=== PATIENT | male | born 1955 | race Caucasian/White ===

== ENCOUNTER 2022-01-18 10:11 | Outpatient (CLI) | payer OTHER, MEDICARE, SELFPAY ==
--- OUTSIDE RECORDS SUMMARY | 2022-01-18 10:14 | XMS_ITS | Clinical Summary ---
:1955 Author Organization [facility] [place] [address] Care Team Providers Name Role Phone Alexandre Asif MD Primary Care Provider Allergies No known active allergies Medications Medication Sig Dispensed Refills Start Date End Date Status lisinopril (PRINIVIL; Take 20 mg by mouth 0 Active ZESTRIL) 20 mg tablet once daily. aspirin (ECOTRIN) 81 Take 81 mg by mouth 0 Active mg enteric coated once daily in the tablet evening. nitroglycerin Place 1 tablet 25 tablet 2 10/01/2018 Active (NITROSTAT) 0.4 mg under the tongue sublingual every 5 minutes if tabletIndications: needed for Chest Coronary artery Pain (May repeat up disease, angina to 3 doses. If no presence unspecified, relief, call unspecified vessel or provider.). lesion type, unspecified whether [place] or transplanted heart carvediloL (COREG) 25 TAKE ONE TABLET BY 60 tablet 0 0 Active mg tabletIndications: MOUTH TWICE A DAY Coronary artery disease, angina presence unspecified, unspecified vessel or lesion type, unspecified whether [place] or transplanted heart, Ischemic cardiomyopathy spironolactone Take 1 Tablet by 90 Tablet 3 06/22/2020 Active (ALDACTONE) 25 mg mouth every tabletIndications: morning. Ischemic cardiomyopathy atorvastatin TAKE ONE TABLET BY 90 Tablet 3 07/14/2020 Active (LIPITOR) 40 mg MOUTH AT BEDTIME tabletIndications: Coronary artery disease, angina presence unspecified, unspecified vessel or lesion type, unspecified whether [place] or transplanted heart acetaminophen Take 2 Tablets (650 0 10/18/2021 Active (TYLENOL) 325 mg mg) by mouth every tabletIndications: 4 hours if needed Closed fracture of for Pain. Max multiple ribs of acetaminophen dose: right side, initial 4000mg in 24 hrs. encounter oxyCODONE Take 1 Tablet (5 10 Tablet 0 10/18/2021 Ac tive (ROXICODONE) 5 mg mg) by mouth every immediate release 4 hours if needed tabletIndications: for Pain. Closed fracture of multiple ribs of right side, initial encounter apixaban (ELIQUIS) 5 Take 1 Tablet (5 10 Tablet 0 10/18/2021 Active mg tabletIndications: mg) by mouth 2 left ventricular times daily. apical thrombus Active Problems Patient Care Coordination Note Formatting of this note might be differe nt from the original. Returning to work is what matters most t lj [place]. Anaya would like his care team to know has not quit smoking and going to improve his diet. What are Anaya's challenges, stressors, or barriers? Recent PPM placement, recently quit smoking Problem Noted Date Left heart thrombus 11/18/2021 Left ventricular thrombus following ID 10/17/2021 Overview: Formatting of this note is dif ferent from the original. EXAM: CT CHEST ABDOMEN PELVIS W LOCATION: [facility] DATE/TIME: 10/17/2021 11:41 AM ?? INDICATION: Polytrauma, blunt COMPARISON: 10/01/18 xr, 09/26/18 ct TECHNIQUE: CT scan of the chest, abdomen , and pelvis was performed following injection of IV contrast. Multiplanar reformats were obtained. Dose reduction techniques were used. CONTRAST: IOHEXOL 350 MG IODINE/ML IV 10 0 ML BOTTLE: 75mL ?? FINDINGS: LUNGS AND PLEURA: Linear scarring and ca lcified granuloma. No acute airspace opacities or suspicious nodules ?? MEDIASTINUM/AXILLAE: No lymphadenopathy. No thoracic aortic aneurysms. Single lead pacemaker tip in the right ventricle. Subendocardial fat and left ventricular wall thinning with an adjacent 1.9 cm rou nded filling defect (series 3, image 117 ). The appearance of the myocardium is similar to cardiac MRI from 09/30/2018, but the intraventricular filling defect is new. ?? CORONARY ARTERY CALCIFICATION: Severe. ?? HEPATOBILIARY: No significant mass or bi le duct dilatation. Surgically absent gallbladder. ?? PANCREAS: Normal. ?? SPLEEN: Calcified granulomas ?? ADRENAL GLANDS: Normal. ?? KIDNEYS/BLADDER: No significant mass, st ones, or hydronephrosis. There are simple or benign cysts. No follow up is needed. ?? BOWEL: Normal. ?? LYMPH NODES: Normal. ?? VASCULATURE: Moderate multifocal atheros clerotic calcification of the abdominal aorta and iliofemoral arteries. Infrarenal aortic aneurysm measuring 4.1 cm and the right common iliac artery aneurysm julisa suring 2.4 cm, both with peripheral calc ification and mural thrombus. No findings of rupture or hemorrhage. ?? PELVIC ORGANS: Normal. ?? MUSCULOSKELETAL: Nondisplaced and mildly displaced fractures of the right 9-11 ribs. Healed fracture of the right eighth rib. ?? IMPRESSION: 1. Nondisplaced and mildly displaced fra ctures of the right 9th-11th ribs. No other acute traumatic findings. ?? 2. Rounded filling defect within the lef t ventricle, most likely thrombus, associated with sequelae of previous myocardial infarction. Closed fracture of multiple ribs of right side 022 Acute kidney injury 10/17/2021 Overview: Formatting of this note is dif ferent from the original. CREATININE (mg/dL) Date Value 10/17/2021 1.32 (H) COVID-19 10/17/2021 Overview: 10/17/2021 PCR positive. Single Chamber ICD 09/30/2018 10/01/2018 Overview: -secondary prevention device Cardiac arrest 09/26/2018 Acute respiratory failure with hypoxia 09/26/2018 Encephalopathy acute 09/26/2018 Ischemic cardiomyopathy 09/26/2018 Hypokalemia 09/26/2018 Thrombocytopenia 09/26/2018 Elevated serum creatinine 09/26/2018 Chest pain with high risk for cardiac etiology 015 CAD (coronary artery disease) Overview: s/p stents at [facility] 2011, hx anterio r ID Hypertension BPH (benign prostatic hypertrophy) Encounters Date Type Specialty Care Team Description 11/18/2021 Office Visit Reji Quinones MD 10/17/2021 - Emergency [facility] Closed fractu re of multiple ribs of right side, initial encounter (Primary Dx); 10/18/2021 MD Ankush Left ventricular thrombus following ID ( HC) José Miguel Villanueva MD Discharge Summary - Mckay Villanueva MD - 10/18/2021 9:00 AM CDT Images from the original not e were not included. HOSPITALIST DISCHARGE SUMMAR Y ? ? [facility] Admission Date: 10/17/2021 Discharge Date: 10/18/2021 Discharge Plan: Anaya mcwilliams was discharged to home. Principal Diagnosis Left ventricular thrombus. M ultiple rib fractures. Hospital Problem List Principal Problem: Left ventricular thrombus f ollowing ID (HC) Active Problems: Closed fracture of multiple ribs of right side CAD (coronary artery diseas e) Hypertension Ischemic cardiomyopathy Single Chamber ICD 9 Acute kidney injury (HC) COVID-19 ADDITIONAL COMMENTS REGARDIN G DIAGNOSIS SPECIFICITY Additional Diagnosis [facility] Course Anaya Cedeno is a 66 y. o. male with a history of coronary artery disease and ischemic cardiomyopathy who presents with right sided chest pain after mechanical fall striking right side of chest last night. He reports chronic s moker's cough and is currently a half pack per day smoker. He denies head trauma, shortness of breath, nausea/vomiting diaphoresis. He had been drinking alcohol. Trauma surge on contacted by emergency de partment staff-patient observed for signs/ symptoms of pneumothorax or other complication. Initial CT imaging showed ro unded filling defect in left ventricle suspicious for thrombus. Echocardiogram confirmed left ventricular apical thrombus. Patient was anticoagulated with heparin after discu ssion with Cardiology, Dr. Jamil Oh. He tolerated anticoagulation without any adverse complications and transitioned to oral apixaban the morning of 10/18/2021. Of note, patient was PCR pos itive for COVID-19. He had some exposure to an infant with sniffles the previous week but was without symptoms. Advised on CDC and [place] dept of health recommendations. Plan discharge to home. Foll ow up with primary care physician and Cardiology, Dr. Ding in [facility]. Recommendations for Outpatie nt Provider ? ? PCP: Alexandre Asif MD Recommendations for outpati ent provider Specific recommendations to be addressed at the follow up visit: Recent hospitalization for m ultiple rib fractures after mechanical fall. Pain management. Left ventricular apical thro mbus. Anticoagulation with apixaban. Cardiology follow up-Dr. Law fraga. COVID-19. Medication regimen changes: Apixaban 5mg twice daily. Oxycodone 5mg as needed for pain. (#10) Follow-up labs/imaging: none Other specialty follow-up no t included in DC orders: None Special considerations: none . Functional evaluations: Fall Risk: Total Score (If 5 or > is High Risk): 4 (10/17/21 1500) NuDESC (>/=2 abnormal): 0 ( 10/17/21 1500) MOCA: // SLUMS: Discharge Medications Your Home Medicines START taking these medicines Instructions acetaminophen 325 mg tablet For diagnoses: Closed fractu re of multiple ribs of right side, initial encounter Commonly known as: TYLENOL Take 2 Tablets (650 mg) by mouth every 4 hours if needed for Pain. Max acetaminophen dose: 4000mg in 24 hrs. apixaban 5 mg tablet For diagnoses: Left ventricu lar thrombus following ID Commonly known as: ELIQUIS Take 1 Tablet (5 mg) by analy th 2 times daily. oxyCODONE 5 mg immediate rel ease tablet For diagnoses: Closed fractu re of multiple ribs of right side, initial encounter Commonly known as: ROXICODON E Take 1 Tablet (5 mg) by analy th every 4 hours if needed for Pain. CONTINUE taking these medici jessica Instructions aspirin 81 mg enteric coated tablet Commonly known as: ECOTRIN Take 81 mg by mouth once da annabelle in the evening. atorvastatin 40 mg tablet For diagnoses: Coronary juan ry disease, angina presence unspecified, unspecified vessel or lesion type, unspecified whether [place] or transplanted heart Commonly known as: LIPITOR TAKE ONE TABLET BY MOUTH AT BEDTIME carvediloL 25 mg tablet For diagnoses: Coronary juan ry disease, angina presence unspecified, unspecified vessel or lesion type, unspecified whether [place] or transplanted heart, Ischemic cardiomyopathy Commonly known as: COREG TAKE ONE TABLET BY MOUTH TW ICE A DAY Doctor's comments: Patient i s overdue for follow up. Please have him call, thanks lisinopriL 20 mg tablet Commonly known as: PRINIVIL; ZESTRIL Take 20 mg by mouth once da annabelle. nitroglycerin 0.4 mg subling ual tablet For diagnoses: Coronary juan ry disease, angina presence unspecified, unspecified vessel or lesion type, unspecified whether [place] or transplanted heart Commonly known as: NITROSTAT Place 1 tablet under the to ngue every 5 minutes if needed for Chest Pain (May repeat up to 3 doses. If no relief, call provider.). spironolactone 25 mg tablet For diagnoses: Ischemic card iomyopathy Commonly known as: ALDACTONE Take 1 Tablet by mouth ever y morning. Where to get your medicines These medications were sent to [facility] [address] [facility] [address] [place] [address] apixaban 5 mg tablet You have received printed pr escription(s) for these medicines or supplies. Take these to your preferred pharmacy. Bring a paper prescription f or each of these medications oxyCODONE 5 mg immediate rel ease tablet Prescriptions for these medi cines or supplies were NOT printed nor sent to your preferred pharmacy. Check with your doctor if you have questions. Check with your doctor if yo u have questions. acetaminophen 325 mg tablet Pertinent Findings / Procedu res First weight: 99.2 kg (218 l b 9.6 oz) (10/17/21 0942) Last weight: 99.6 kg (219 lb 8 oz) (10/18/21 0600) Results for orders placed or performed during the hospital encounter of 10/17/21 CBC W PLT NO DIFF Result Value Ref Range Statu s WHITE BLOOD COUNT 9.0 4.5 - 11.0 thou/cu mm Final RED BLOOD COUNT 4.62 4.30 - 5.90 mil/cu mm Final HEMOGLOBIN 15.1 13.5 - 17.5 g/dL Final HEMATOCRIT 43.4 37.0 - 53.0 % Final MCV 94 80 - 100 fL Final MCH 32.7 26.0 - 34.0 pg Fin al MCHC 34.8 32.0 - 36.0 g/dL Final RDW 12.8 11.5 - 15.5 % [facility] PLATELET COUNT 145 140 - 44 0 thou/cu mm Final MPV 10.9 6.5 - 11.0 fL [facility] COMP METABOLIC PANEL Result Value Ref Range Statu s SODIUM 136 135 - 145 mmol/L Final POTASSIUM 4.8 3.5 - 5.0 mmo l/L Final CHLORIDE 103 98 - 110 mmol/ L Final CO2,TOTAL 21 21 - 31 mmol/L Final ANION GAP 12 5 - 18 Final GLUCOSE 137 (H) 65 - 100 mg /dL Final CALCIUM 9.6 8.5 - 10.5 mg/d L Final BUN 19 8 - 25 mg/dL Final CREATININE 1.32 (H) 0.72 - 1.25 mg/dL Final BUN/CREAT RATIO 14 10 - 20 Final ALBUMIN 4.0 3.2 - 4.6 g/dL Final PROTEIN,TOTAL 7.0 6.0 - 8.0 g/dL Final GLOBULIN 3.0 2.0 - 3.7 g/dL Final A/G RATIO 1.3 1.0 - 2.0 Fin al BILIRUBIN,TOTAL 1.2 0.2 - 1 .2 mg/dL Final ALK PHOSPHATASE 90 50 - 136 IU/L Final ALT (SGPT) 20 8 - 45 IU/L F inal AST (SGOT) 17 2 - 40 IU/L F inal eGFR 59 (L) >90 mL/min/1.73 m2 Final COVID 19 COLLECTION Result Value Ref Range Statu s TESTING LABORATORY [facility] Final COVID 19 Specimen: Nasopharyngeal; O ther Result Value Ref Range Statu s COVID 19 [facility] D etected (A) Not detected Final PROTIME-INR Result Value Ref Range Statu s INR 1.0 <1.3 Final PROTIME 13.3 11.8 - 13.9 se c Final APTT Result Value Ref Range Statu s APTT 27 25 - 36 sec Final APTT Result Value Ref Range Statu s APTT 157 (H) 25 - 36 sec Fi nal BASIC METABOLIC PANEL Result Value Ref Range Statu s SODIUM 135 135 - 145 mmol/L Final POTASSIUM 4.2 3.5 - 5.0 mmo l/L Final CHLORIDE 103 98 - 110 mmol/ L Final CO2,TOTAL 22 21 - 31 mmol/L Final ANION GAP 10 5 - 18 Final GLUCOSE 122 (H) 65 - 100 mg /dL Final CALCIUM 8.9 8.5 - 10.5 mg/d L Final BUN 19 8 - 25 mg/dL Final CREATININE 1.25 0.72 - 1.25 mg/dL Final BUN/CREAT RATIO 15 10 - 20 Final eGFR 63 (L) >90 mL/min/1.73 m2 Final APTT Result Value Ref Range Statu s APTT 89 (H) 25 - 36 sec Fin al EKG 12 LEAD Result Value Ref Range Statu s Interpretation Preliminary Sinus bradycardia Right bundle branch block Anteroseptal infarct (cited on or before 27-SEP-2018) T wave abnormality, consider lateral ischemia Abnormal ECG When compared with ECG of 06:47, T wave inversion now evident in Anterior leads QT has shortened Ventricular Rate 45 BPM Pre liminary Atrial Rate 45 BPM Prelimin cecilia P-R Interval 166 ms Prelimi nary QRS Duration 146 ms Prelimi nary QT 480 ms Preliminary QTc 415 ms Preliminary P Whitakers 22 degrees Prelimina ry R Whitakers 55 degrees Prelimina ry T Whitakers 95 degrees Prelimina ry ECHO COMPLETE W CONTRAST Result Value Ref Range Statu s EJECTION FRACTION 35% Final Transthoracic Echo Report ANAYA CEDENO ID: [id number] Ag e: 66 : 1955 Ordering Provider: JOSÉ MIGUEL VILLANUEVA Exam Date: 10/17/2021 14:04 Gender: M Clinical Operations Manager: CANDIDA Aaliyah ht: 72 in BSA: 2.21 m?? BP: 139 / 83 Weight: 218 lbs BMI: 29.6 k g/m?? HR: 50 ?? Location: Inpatient ([facility]) Rhythm: Artificially Paced Procedure Components: 2D im aging with contrast, Color Doppler, Limited Spectral Doppler Indications: Arterial embol ism and thrombosis, Intracardiac thrombosis, not elsewhere classified Technical Quality: Poor Con trast: Definity Constrast Dose (ml): 1.5 ?? Final Conclusion Previous S tudy: 11/07/2020 1. Large apical thrombus is present. 2. Regional wall motion abn ormalities are present: Severe hypokinesis/akinesis of the mid to distal inferoseptal, anteroseptal, anterior, and true apex. 3. Moderately decreased lef t ventricular systolic function. Estimated left ventricular ejection fraction is 35%. 4. No significant valvular heart disease. ?? Apical thrombus was not vis ualized on previous exam from 2020. Findings communicated to hospital physician. ?? EXAM: CT CHEST ABDOMEN PELVI S W LOCATION: [facility] DATE/TIME: 10/17/2021 11:41 AM ?? INDICATION: Polytrauma, blun t COMPARISON: 10/01/18 xr, ct TECHNIQUE: CT scan of the est, abdomen, and pelvis was performed following injection of IV contrast. Multiplanar reformats were obtained. Dose reduction techniques were used. CONTRAST: IOHEXOL 350 MG IOD INE/ML IV 100 ML BOTTLE: 75mL ?? FINDINGS: LUNGS AND PLEURA: Linear sca rring and calcified granuloma. No acute airspace opacities or suspicious nodules ?? MEDIASTINUM/AXILLAE: No lymp hadenopathy. No thoracic aortic aneurysms. Single lead pacemaker tip in the right ventricle. Subendocardial fat and left ventricular wall thinning with an adjacent 1.9 cm rou nded filling defect (series 3, image 117). The appearance of the myocardium is similar to cardiac MRI from 09/30/2018, but the intraventricular filling defect is new. ?? CORONARY ARTERY CALCIFICATIO N: Severe. ?? HEPATOBILIARY: No significan t mass or bile duct dilatation. Surgically absent gallbladder. ?? PANCREAS: Normal. ?? SPLEEN: Calcified granulomas ?? ADRENAL GLANDS: Normal. ?? KIDNEYS/BLADDER: No signific ant mass, stones, or hydronephrosis. There are simple or benign cysts. No follow up is needed. ?? BOWEL: Normal. ?? LYMPH NODES: Normal. ?? VASCULATURE: Moderate multif ocal atherosclerotic calcification of the abdominal aorta and iliofemoral arteries. Infrarenal aortic aneurysm measuring 4.1 cm and the right common iliac artery aneurysm julisa suring 2.4 cm, both with per ipheral calcification and mural thrombus. No findings of rupture or hemorrhage. ?? PELVIC ORGANS: Normal. ?? MUSCULOSKELETAL: Nondisplace d and mildly displaced fractures of the right 9-11 ribs. Healed fracture of the right eighth rib. ?? IMPRESSION: 1. Nondisplaced and mildly d isplaced fractures of the right 9th-11th ribs. No other acute traumatic findings. ?? 2. Rounded filling defect wi thin the left ventricle, most likely thrombus, associated with sequelae of previous myocardial infarction. ?? EXAM: CT HEAD BRAIN WO LOCATION: [facility] DATE/TIME: 10/17/2021 11:28 AM ?? INDICATION: Headache after t rauma COMPARISON: CT head dated TECHNIQUE: Routine CT Head w ithout IV contrast. Multiplanar reformats. Dose reduction techniques were used. ?? FINDINGS: INTRACRANIAL CONTENTS: No ac michael intracranial hemorrhage. No CT evidence of acute infarct. Sequelae of mild chronic microangiopathy. Mild cerebral volume loss without hydrocephalus. No extra-axial fluid collections. Patent basal cisterns. ?? VISUALIZED ORBITS/SINUSES/MA STOIDS: The orbits are unremarkable. Mild paranasal sinus mucosal thickening. The s3lozbleoh bone structures are well-aerated. ?? BONES/SOFT TISSUES: The calv arium and skull base are unremarkable. ?? IMPRESSION: ?? 1. Senescent changes and seq uelae of chronic microangiopathy without acute intracranial abnormality. ?? Consultants Dr. Rivas of Cardiology b y phone call. Dr. High-surgery by phone discussion with emergency department staff. Diet / Activity / Follow-Up After Discharge Orders and I nstructions COVID-19 Discharge Informat ion: Discharge instructions for COVID test positive You were tested for COVID-19 and your test result was positive. Additional Information When it is safe to return to work, school, or daycare: If you or others in your [facility] are working, please reach out to your Employer for further direction on work policies. For children who attend scho ol or day care, refer your child's school or day care policy for when its safe to return, You can also refer to the [facility] guidelines. Go to: https://www.[facility]./di seases/coronavirus/schools/exguide.pdf Call 911 if you have a medic al emergency: Notify the dispatch personnel of any symptoms, or if you have been tested, or are being evaluated for, COVID-19. If possible, put on a facemask. Emergency Warning Signs of C OVID-19 include, but are not limited to: Trouble breathing Persistent pain or pressure in the chest New confusion or inability t o stay alert Bluish lips or face Additional Resources: For more information relatin g to COVID-19 go to: Centers for Disease Control (CDC) - https://www.cdc.gov/coronavirus/2019-nCoV/index.html [facility]ly [facility] ([facility]) - https://www.[facility]./diseases/coronavirus/index.html For children who attend scho ol or day care, refer to the following [facility] guidelines: Go to: https://www.[facility]./diseases/coronavirus/schools/exguide.pdf [facility]'s website www.[facility] Cardiac diet: - make food choices that ar e considered heart healthy - eat more fresh fruits and vegetables: - aim for two or more servi ngs of fruit each day - eat three or more serving s of vegetables each day - eat whole grains. - limit sodium (salt): - do not add extra salt at the table - omit or reduce salt in ba francisc[place] and cooking - eat more foods you make at home - eat more chicken, fish, an d lean pork, eat less red meat - bake, grill, or broil meat s, limit fried foods - eat two to three servings of low-fat or fat-free dairy foods each day - use these sparingly: veget able oil and spray, tub or squeeze margarine, low or non-fat salad dressing sparingly - read labels to avoid trans -fats Primary Care Provider hugh vasquez up appointment(s) Alexandre Asif MD When to follow up: 1 to 5 d ays When is patient being disch arged?: Today Up as tolerated Get regular activity and tr y to walk for a total of 30 minutes per day. Start by walking for 5 to 10 minutes at one time and slowly build to walking for 30 minutes one time. Rest is also an important pa rt of healing. Slowly return to your regular level of activity. Save your energy by spreading out activities that make you tired. Rest as needed. When should you be concerne d? Your health care provider i s: Alexandre Asif MD Please call your health care provider if: - you feel you are getting w orse or having an increase in problems - fever greater than 101 deg freya - increasing shortness of br eath - any signs of infection (in creasing redness, swelling, tenderness, warmth, change in appearance, or increased drainage) - blood in your urine or sto ol - coughing or vomiting blood - nausea (upset stomach) and vomiting and/or diarrhea that will not stop - severe pain that is not re lieved by medicine, rest or ice Call 911 if you feel you are having a medical emergency. [facility] You were in the hospital fo r rib fractures and left ventricular blood clot. Pending Studies Lab results that may not be resulted at time of discharge: (From admission through now) None Total time spent on discharg e coordination: 40 minutes. Patient was seen and examined today. José Miguel Villanueva MD Hospitalist, [facility] ? ? [phone] from Last 3 Months Social History Tobacco Use Types Packs/Day Years Used Date Current Every Day Smoker Cigarettes 0.5 Nikhil t: 04/16/1999 Smokeless Tobacco: Former User Chew Tobacco Cessation: Ready to Quit: No; Co unseling Given: Yes Alcohol Use Standard Drinks/Week Comments Yes 0 (1 standard drink = 0.6 oz pure alcoho l) 1-2x/week Alcohol Habits Answer Date Recorded How often do you have a drink containing alcohol? Not asked How many drinks containing alcohol do you have on a typical Not asked day when you are drinking? How often do you have six or more drinks on one occasion? No t asked Comment: 1-2x/week 06/22/2020 Sex Assigned at Date Recorded Not on file Obstetrics History Last Filed Vital Signs Vital Sign Reading Time Taken Comments Blood Pressure 111/74 10/18/2021 10:39 AM CDT Pulse 55 10/18/2021 10:39 AM CDT Temperature 36.6 ??C (97.9 ??F) 10/18/2021 9:00 AM CDT Respiratory Rate 16 10/18/2021 9:00 AM CDT Oxygen Saturation 96% 10/18/2021 9:00 AM CDT Inhaled Oxygen Concentration - - Weight 99.6 kg (219 lb 8 oz) 10/18/2021 6:00 AM CDT Height 182.9 cm (6') 10/17/2021 9:42 AM CDT Body Mass Index 29.77 10/17/2021 9:42 AM CDT Plan of Treatment Upcoming Encounters Date Type Specialty Care Team Description 02/15/2022 Orders Only Health Maintenance Due Date Last Done Comments Pneumococcal series for age 65+ (1 - 1959 PCV) Tdap 1964 BMI (ht and wt on same day) for age 0105/14/1971 18+ Hepatitis C screening for age 18-79 1971 Zoster (shingles) series for age 50+ 1972 (1 of 2) Tetanus booster 1973 Colonoscopy through age 75 1998 Medicare Wellness for age 65+ 2018 Lipids for age 45-75 07/19/2019 07/18/2014 Depression screening for age 12+ 10/09/2019 10/08/2018, , 09/26/2018 COVID-19 vaccine series (4 - Booster 05/30/2021 04/04/2021, 07/16/2020, for Moderna series) 06/17/2020 Influenza for age 65+ 12/15/2021 Procedures Procedure Name Priority Date/Time Associated Diagnosis Comme nts EKG 12 LEAD Routine 10/18/2021 7:47 AM Results f or this CDT procedure are i n the results section. APTT Timed 10/18/2021 6:12 AM Results f or this CDT procedure are i n the results section. BASIC METABOLIC Early AM 10/18/2021 6:12 AM Result s for this PANEL CDT procedure are i n the results section. SCAN-CARDIAC STRIP 10/18/2021 12:00 AM Re sults for this CDT procedure are i n the results section. from Last 3 Months Results EKG 12 LEAD (10/18/2021 7:47 AM CDT) Component Value Ref Range Test Analysis Performed Pathologis t Method Time At Signature Interpretation Sinus bradycardia BEYOND NOW Right bundle branch block Anteroseptal infarct (cited on or before 27-SEP-2018) T wave abnormality, consider lateral ischemia Abnormal ECG When compared with ECG of 01-OCT-2018 06:47, T wave inversion now evident in Anterior leads QT has shortened Ventricular Rate 45 BPM BEYOND NOW Atrial Rate 45 BPM BEYOND NOW P-R Interval 166 ms BEYOND NOW QRS Duration 146 ms BEYOND NOW QT 480 ms BEYOND NOW QTc 415 ms BEYOND NOW P Whitakers 22 degrees BEYOND NOW R Whitakers 55 degrees BEYOND NOW T Whitakers 95 degrees BEYOND NOW Specimen Anatomical Collection Method Collection Time Receive d Time (Source) Location / / Volume Laterality 10/18/2021 7:47 AM CDT 12:43 AM CDT Robin Salmon MD EKG ORD Performing Organization Address City/State/ZIP Code Phon e Number [place], [place] (ABNORMAL) APTT (10/18/2021 6:12 AM CDT) P athologist Signature APTT 89 (H) 25 - 36 sec 10/18/2021 [facility] 6:45 AM CDT Specimen Anatomical Collection Method / Collection Time Recei salome Time (Source) Location / Volume Laterality Blood BLOOD SPECIMEN / Venipuncture / 10/18/2021 6:12 2021 6:27 Unknown Unknown AM CDT AM CDT Narrative [facility] - 10/18/2021 6:45 AM CDT Therapeutic Range: 76-99 seconds José Miguel Villanueva MD HEMATOLOGY Performing Organization Address City/State/ZIP Code Phon e Number [facility] [address] [place] [address] (ABNORMAL) BASIC METABOLIC PANEL (10/18/2021 6:12 AM CDT) P athologist Signature SODIUM 135 135 - 145 10/18/2021 [place] mmol/L 6:56 AM [facility] POTASSIUM 4.2 3.5 - 5.0 10/18/2021 [place] mmol/L 6:56 AM [facility] CHLORIDE 103 98 - 110 10/18/2021 [place] mmol/L 6:56 AM [facility] CO2,TOTAL 22 21 - 31 10/18/2021 [place] mmol/L 6:56 AM [facility] ANION GAP 10 5 - 18 10/18/2021 [place] 6:56 AM [facility] GLUCOSE 122 (H) 65 - 100 10/18/2021 [place] mg/dL 6:56 AM [facility] CALCIUM 8.9 8.5 - 10.5 10/18/2021 [place] mg/dL 6:56 AM [facility] BUN 19 8 - 25 10/18/2021 [place] mg/dL 6:56 AM [facility] CREATININE 1.25 0.72 - 10/18/2021 [place] 1.25 mg/dL 6:56 AM [facility] BUN/CREAT RATIO 15 10 - 20 10/18/2021 [place] 6:56 AM [facility] eGFR 63 (L) >90 10/18/2021 [place] mL/min/1.7 6:56 AM [facility] 3m2 Comment: As of 2021, eGFR is calcu lated by the CKD-EPI creatinine equation without race adjustment. eGFR can be inf luenced by muscle mass, exercise, and diet. The reported eGFR is an estimation only and is only applicable if the renal function is stable. Specimen Anatomical Collection Method / Collection Time Recei salome Time (Source) Location / Volume Laterality Blood BLOOD SPECIMEN / Venipuncture / 10/18/2021 6:12 2021 6:27 Unknown Unknown AM CDT AM CDT José Miguel Villanueva MD CHEMISTRY Performing Organization Address City/State/ZIP Code Phon e Number [facility] [address] [place] [address] SCAN-CARDIAC STRIP (10/18/2021 12:00 AM CDT) Narrative 10/18/2021 12:00 AM CDT This result has an attachment that is no t available. Ordered by an unspecified provider. Other Clinical Staff OTHER from Last 3 Months Insurance Payer Benefit Plan / Subscriber ID Effective Dates Phone Addre ss Type Group MEDICARE PART A MEDICARE PART A [id number] 2018-Present ATTN: CLAIMS - HB USE ONLY HB ONLY [address] [place] [address] [employer] GOLD MR [employer] CHOICE [id number] 2021-Present [address] [address] [place] [address] [phone] (Home) ANGIE CALZADA [id number] [place] 04/16/1902 [phone] ATTN: FINANCE DEPT CORRECTIONAL Billing 0 (Home) [address] [place] [address] [phone] [place], [place] 5 (Work) [id number] [address] Cedeno Personal/Fami Self 1955 [phone] (Home) ANGIE UMANZOR [phone] (Work) [place] [facility] [place] [facility] [facility] Adalberto Helton Inmate Other 04[birth year]16/2002 [phone] Billing 0 (Home) ANGIE UMANZOR [id number] [place] [facility] Other [place] [facility] [facility] [place] [facility] [place] [facility] [place] [facility] [place] [facility] [facility] [place] [facility] [place] [facility] [place] [facility] [place] [facility] [place] [facility] Other 04/16/1971 [address] [place] B[place] ANGIE [place] [facility] [id number] FACILITY Advance Directives Latest Code Status on File Code Status Date Activated Date Inactivated Comments Full Code 10/17/2021 1:55 PM 10/18/2021 4:05 PM Code Status Discussion: Reviewed Preferences Full Code 09/26/2018 5:08 PM 10/01/2018 3:30 PM Full Code 07/18/2014 11:27 AM 07/19/2014 12:09 PM Care Teams Wire Strander Relationship Specialty Start Date End Date Alexandre Asif MD PCP - General Internal Medicine 10/03/181999 [place] [address]
[2022-01-18 11:41] LABS: Albumin* 4.7 g/dL (3.3-5.0); Chloride* 99 mmol/L (96-114)
[2022-01-18 11:42] LABS: Potassium* 4.9 mmol/L (3.6-5.1); Sodium* 136 mmol/L (135-149)
[2022-01-18 11:44] LABS: Aspartate Amino Transferase* 23 U/L (12-35); Bilirubin Total* 1.1 mg/dL (0.1-1.5); Blood Urea Nitrogen* 23 mg/dL (7-30); Carbon Dioxide* 29 mmol/L (20-32); Cholesterol* 109 mg/dL (90-199); Creatinine* 1.4 mg/dL (0.5-1.5); Estimated Glomerular Filt Rate 55 ml/min; Total Protein* 7.6 g/dL (6.0-8.3)
[2022-01-18 11:45] LABS: Alanine Aminotransferase* 17 U/L (4-50); Alkaline Phosphatase* 90 U/L (40-150); Calcium* 10.1 mg/dL (8.4-10.6); Glucose* 128 mg/dL (60-115); HDL Cholesterol* 45 mg/dL (>=40); LDL Cholesterol Calculated 38 mg/dL (<100); Triglycerides* 128 mg/dL (40-149)
== END 2022-01-18 10:12 | disposition home or self-care (01) ==
PROVIDERS: PCP Internal Medicine; Visit Provider Internal Medicine
DX: Z00.00 Encounter for general adult medical examination without abnormal findings (principal); I10 Essential (primary) hypertension; Z13.6 Encounter for screening for cardiovascular disorders; Z12.5 Encounter for screening for malignant neoplasm of prostate
CPT/HCPCS: 80053; 80061; 84153

== ENCOUNTER 2022-02-15 12:49 | Outpatient (CLI) | payer OTHER, SELFPAY ==
[2022-02-15] MEDS: PERFLUTREN LIPID MICROSPHERES 2 ML VIAL IV (14:02)
== END 2022-02-15 12:50 | disposition home or self-care (01) ==
LOC: RAD 12:49
PROVIDERS: PCP Internal Medicine; Visit Provider Internal Medicine Cardiovascular Disease
DX: I51.3 Intracardiac thrombosis, not elsewhere classified (principal)
CPT/HCPCS: 93306; Q9957

== ENCOUNTER 2022-06-05 12:31 | Outpatient (CLI) | payer OTHER, SELFPAY | END 2022-06-05 12:32 | disposition home or self-care (01) | LOC: RAD 12:33 | PROVIDERS: PCP Internal Medicine; Visit Provider Internal Medicine Cardiovascular Disease | DX: I25.5 Ischemic cardiomyopathy (principal); I51.3 Intracardiac thrombosis, not elsewhere classified | CPT/HCPCS: 93306 ==

== ENCOUNTER 2023-02-26 07:44 | Outpatient (CLI) | payer OTHER, SELFPAY | END 2023-02-26 07:45 | disposition home or self-care (01) | LOC: NFLDREF 02-27 21:57 | PROVIDERS: PCP Internal Medicine; Referring Provider Internal Medicine; Visit Provider Internal Medicine | DX: Z00.00 Encounter for general adult medical examination without abnormal findings (principal); I10 Essential (primary) hypertension; I51.3 Intracardiac thrombosis, not elsewhere classified; K80.20 Calculus of gallbladder without cholecystitis without obstruction; R97.20 Elevated prostate specific antigen [PSA]; N18.9 Chronic kidney disease, unspecified; R73.9 Hyperglycemia, unspecified; Z12.5 Encounter for screening for malignant neoplasm of prostate; Z13.6 Encounter for screening for cardiovascular disorders | CPT/HCPCS: 80053; 80061; 84153 ==

== ENCOUNTER 2024-01-07 08:25 | Outpatient (CLI) | payer OTHER, SELFPAY ==
--- OUTSIDE RECORDS SUMMARY | 2024-01-11 00:01 | XMS_ITS | Clinical Summary ---
Author Organization [employer] [facility] Address [place], [place] [address] Care Team Providers Care Inspector Paper Products Name Role Phone Alexandre Asif MD Primary Care Provider Allergies No known active allergies Medications Medication Sig Dispensed Refills Start Date End Date Status lisinopril (PRINIVIL; ZESTRIL) 20 mg tablet Take 20 mg by mouth once daily. Active aspirin (ECOTRIN) 81 mg enteric coated tablet Take 81 mg by mouth once daily in the evening. Active nitroglycerin (NITROSTAT) 0.4 mg sublingual tabletIndications:Co ronary artery disease, angina presence unspecified, unspecified vessel or lesion type, unspecified whether sun'aq or transplanted heart Place 1 tablet under the tongue every 5 minutes if needed for Chest Pain (May repeat up to 3 doses. If no relief, call provider.). 25 tablet 2 10/01/2018 Active carvediloL (COREG) 25 mg tabletIndications:Co ronary artery disease, angina presence unspecified, unspecified vessel or lesion type, unspecified whether sun'aq or transplanted heart,Ischemic cardiomyopathy TAKE ONE TABLET BY MOUTH TWICE A DAY 60 tablet 03/19/2020 Active spironolactone (ALDACTONE) 25 mg tabletIndications:Is chemic cardiomyopathy Take 1 Tablet by mouth every morning. 90 Tablet 3 06/22/2020 Active atorvastatin (LIPITOR) 40 mg tabletIndications:Co ronary artery disease, angina presence unspecified, unspecified vessel or lesion type, unspecified whether sun'aq or transplanted heart TAKE ONE TABLET BY MOUTH AT BEDTIME 90 Tablet 3 07/14/2020 Active acetaminophen (TYLENOL) 325 mg tabletIndications:Cl osed fracture of multiple ribs of right side, initial encounter Take 2 Tablets (650 mg) by mouth every 4 hours if needed for Pain. Max acetaminophen dose: 4000mg in 24 hrs. 0 10/18/2021 Active oxyCODONE (ROXICODONE) 5 mg immediate release tabletIndications:Cl osed fracture of multiple ribs of right side, initial encounter Take 1 Tablet (5 mg) by mouth every 4 hours if needed for Pain. 10 Tablet 10/18/2021 Active Active Problems Patient Care Coordination No te Formatting of this note migh t be different from the original. Returning to work is what matters most to Natanael. Natanael would like his care team to know has not quit smoking and going to improve his diet. What are Natanael's challenges, stressors, or barriers? Recent PPM placement, recently quit smoking Problem Noted Date Diagnosed Date Left heart thrombus 11/18/2021 Left ventricular thrombus following MS 2 Overview (10/17/2021): EXAM: CT CHEST ABDOMEN PELVIS W LOCATION: [facility] DATE/TIME: 10/17/2021 11:41 AM ?? INDICATION: Polytrauma, blunt COMPARISON: 10/01/18 xr, 09/26/18 ct TECHNIQUE: CT scan of the chest, abdomen, and pelvis was performed following injection of IV contrast. Multiplanar reformats were obtained. Dose reduction techniques were used. CONTRAST: IOHEXOL 350 MG IODINE/ML IV 100 ML BOTTLE: 75mL ?? FINDINGS: LUNGS AND PLEURA: Linear scarring and calcified granuloma. No acute airspace opacities or suspicious nodules ?? MEDIASTINUM/AXILLAE: No lymphadenopathy. No thoracic aortic aneurysms. Single lead pacemaker tip in the right ventricle. Subendocardial fat and left ventricular wall thinning with an adjacent 1.9 cm rounded filling defect (series 3, image 117). The appearance of the myocardium is similar to cardiac MRI from 09/30/2018, but the intraventricular filling defect is new. ?? CORONARY ARTERY CALCIFICATION: Severe. ?? HEPATOBILIARY: No significant mass or bile duct dilatation. Surgically absent gallbladder. ?? PANCREAS: Normal. ?? SPLEEN: Calcified granulomas ?? ADRENAL GLANDS: Normal. ?? KIDNEYS/BLADDER: No significant mass, stones, or hydronephrosis. There are simple or benign cysts. No follow up is needed. ?? BOWEL: Normal. ?? LYMPH NODES: Normal. ?? VASCULATURE: Moderate multifocal atherosclerotic calcification of the abdominal aorta and iliofemoral arteries. Infrarenal aortic aneurysm measuring 4.1 cm and the right common iliac artery aneurysm measuring 2.4 cm, both with peripheral calcification and mural thrombus. No findings of rupture or hemorrhage. ?? PELVIC ORGANS: Normal. ?? MUSCULOSKELETAL: Nondisplaced and mildly displaced fractures of the right 9-11 ribs. Healed fracture of the right eighth rib. ?? IMPRESSION: 1. Nondisplaced and mildly displaced fractures of the right 9th-11th ribs. No other acute traumatic findings. ?? 2. Rounded filling defect within the left ventricle, most likely thrombus, associated with sequelae of previous myocardial infarction. Closed fracture of multiple ribs of right side 0 10/17/2021 Acute kidney injury 10/17/2021 Overview (10/17/2021): CREATININE (mg/dL) Date Value 10/17/2021 1.32 (H) COVID-19 10/17/2021 Overview (10/17/2021): 10/17/2021 PCR positive. Single Chamber ICD 09/30/2018 10/01/2018 Overview (10/01/2018): -secondary prevention device Cardiac arrest 09/26/2018 Acute respiratory failure with hypoxia 9 Encephalopathy acute 09/26/2018 Ischemic cardiomyopathy 09/26/2018 Hypokalemia 09/26/2018 Thrombocytopenia 09/26/2018 Elevated serum creatinine 09/26/2018 Chest pain with high risk for cardiac etiology 0 07/18/2014 CAD (coronary artery disease) Overview (07/18/2014): s/p stents at [place]' 2011, hx anterior MS Hypertension BPH (benign prostatic hypertrophy) Social History Tobacco Use Types Packs/Day Years Used Date Smoking Tobacco: Every Day Cigarettes Last attempted to quit: 04/16/1999 Smokeless Tobacco: Former Chew Tobacco Cessation:Ready to Q uit: No; Counseling Given: Yes Alcohol Use Standard Drinks/Week Comments Yes 0 (1 standard drink = 0.6 oz pur e alcohol) 1-2x/week PHQ-2 Answer Date Recorded PHQ-2 Score 0 11/01/2018 Social Connections Answer Date Recorded Frequency of Communication with Friends and Fami ly Not on file 04/16/2021 Financial Resource Strain Answer Date R ecorded Difficulty of Paying Living Expenses Not on file 04/16/2021 Difficulty of Paying Living Expenses Not on file 04/16/2021 Sex and Gender Information Value Date Recorded Sex Assigned at Not on file Gender Identity Not on file Sexual Orientation Not on file Obstetrics History Last Filed Vital Signs Vital Sign Reading Time Taken Comments Blood Pressure 111/74 10/18/2021 10:39 AM CDT Pulse 55 10/18/2021 10:39 AM CDT Temperature 36.6 ??C (97.9 ??F) 10/18/2021 9:00 AM CD T Respiratory Rate 16 10/18/2021 9:00 AM CDT Oxygen Saturation 96% 10/18/2021 9:00 AM CDT Inhaled Oxygen Concentration - - Weight 99.6 kg (219 lb 8 oz) 10/18/2021 6:00 AM CDT Height 182.9 cm (6') 10/17/2021 9:42 AM CDT Body Mass Index 29.77 10/17/2021 9:42 AM CDT Plan of Treatment Health Maintenance Due Date Last Done Comments Pneumococcal series for age 65+ (1 of 2 - PCV) 1959 Tdap 1964 BMI (ht and wt on same day) for age 18+ 1971 Hepatitis C screening for age 18-79 1971 Tetanus booster 1973 Colonoscopy through age 75 1998 Zoster (shingles) series for age 50+ (1 of 2) 2003 Medicare Wellness for age 65+ 2018 Lipids for age 45-75 07/19/2019 07/18/2014 Depression screening for age 12+ 10/09/2019 10/08/2018, 10/03/2018, 09/26/2018 COVID-19 vaccine series ( season) 2023 04/04/2021, 07/16/2020, 06/17/2020 Influenza for age 65+ 12/16/2023 Procedures Procedure Name Priority Date/Time Associated Diagnosis Comments LIPID PANEL Timed 07/18/2014 6:00 AM CDT from Last 3 Months or Most Recently Relevant to Health Maintenance Results * (ABNORMAL) LIPID PANEL (07/18/2014 6:00 AM CDT) CHOLESTEROL,TOTAL 130 100 - 200 mg/dL 07/18/2014 6:39 AM CDT [facility] TRIGLYCERIDES 75 56 - 200 mg/dL 07/18/2014 6:39 AM CDT [facility] HDL CHOLESTEROL 39(L) >=40 mg/dL 07/18/2014 6:39 AM CDT [facility] CHOL/HDL RATIO 3.33 <5.00 07/18/2014 6:39 AM CDT [facility] PATIENT STATUS FASTING 07/18/2014 6:39 AM CDT [facility] LDL CHOLESTEROL [place] 76 U/L 07/18/2014 6:39 AM CDT [facility] Blood specimen (specimen) BLOOD SPECIMEN / Unknown Butterfly / Unknown 07/18/2014 6:00 AM CDT 07/18/2014 6:06 AM CDT Mary Brown MD CHEMISTRY Performing Organization Address City/State/[facility] Co de Phone Number [facility] [address] [place] [address] from Last 3 Months or Most Recently Relevant to Health Maintenance [place] [facility] [facility] Billing ATTN: FINANCE DEPT [facility] [place] [phone] Natanael Contreras Personal/Fami ly Self 1955 [address] [id number] [place] [facility] Billing Other [facility] [place] In[facility] Billing Other [address] [id number] [place] [facility] In[facility] Billing Other [place] [facility] In[facility] Billing Other [place] [facility] Inmate Billing Other [place] [facility] In[facility] Billing [place] [facility] Inmate Billing Other [place] [facility] Inmate Billing Other 04/16/1971 [address] [id number] Advance Directives * Full Code (Latest Code Status on File) Date Activated Date Inactivated Comments 10/17/2021 1:55 PM 10/18/2021 4:05 PM Question Answer Comments Code Status Discussion: Reviewed Preferences * Full Code Date Activated Date Inactivated Comments 09/26/2018 5:08 PM 10/01/2018 3:30 PM * Full Code Date Activated Date Inactivated Comments 07/18/2014 11:27 AM 07/19/2014 12:09 PM Care Teams Inspector Paper Products Relationship Specialty Start Date End Date Alexandre Asif MD [address] [place] [id number] PCP - General Internal Medicine 10/03/18
== END 2024-01-07 08:26 | disposition home or self-care (01) ==
LOC: NFLDREF 01-11
PROVIDERS: PCP Internal Medicine; Referring Provider Internal Medicine; Visit Provider Internal Medicine
DX: R97.20 Elevated prostate specific antigen [PSA] (principal); I10 Essential (primary) hypertension; E78.5 Hyperlipidemia, unspecified; Z12.5 Encounter for screening for malignant neoplasm of prostate
CPT/HCPCS: 80053; 80061; G0103

== ENCOUNTER 2025-02-16 08:09 | Outpatient (CLI) | payer OTHER, SELFPAY | END 2025-02-16 08:10 | disposition home or self-care (01) | LOC: NFLDREF 02-19 09:33 | PROVIDERS: PCP Internal Medicine; Referring Provider Internal Medicine; Visit Provider Internal Medicine | DX: I10 Essential (primary) hypertension (principal); R97.20 Elevated prostate specific antigen [PSA]; R73.9 Hyperglycemia, unspecified; Z12.5 Encounter for screening for malignant neoplasm of prostate | CPT/HCPCS: 80053; 80061; G0103 ==